=== PATIENT | female | born 1990 | race Caucasian/White ===

== ENCOUNTER 2017-02-26 18:07 | Emergency (ER) | payer SELFPAY ==
[~2017-02-26] VITALS: Ht 160 cm; Wt 87.0 kg
[~2017-02-26 18:07] MED LIST: BACTDS PO; CEPH-443 PO; IBUP-1542 PO
[2017-02-26 18:12] VITALS: Ht 160 cm; Wt 87.0 kg
[2017-02-26] MEDS ORDERED: HYDROCODONE/APAP (5/325) TAB PO ONE (19:00)
[2017-02-26] MEDS ORDERED: HYDR-906 PO (19:07)
[2017-02-26] MEDS ORDERED: SULF1TAB31 PO (19:07)
[2017-02-26] MEDS ORDERED: IBUP-1542 PO (19:07)
--- NOTE | 2017-02-26 19:55 | ERD ---
ER Documentation Chief Complaint Date/Time DATE: 02/26/17 TIME: 19:49 Chief Complaint abnormal growth genital area since tuesday; pain HPI This is a 26-year-old female who presents the emergency department today complaining of a growth and bump on her vagina for the past 4 days. Patient states that it is painful but it does feel smaller than it did yesterday. States that it had some bleeding from it however denies any other vaginal discharge. States she is sexually active with one partner. Denies any dysuria. States she is taking Motrin for pain. ROS All systems reviewed and are negative except as per history of present illness. Medications Home Meds Active Scripts Sulfamethoxazole/Trimethoprim* (Bactrim Ds* Tablet) 1 Each Tablet, 1 TAB PO BID for 7 Days, #14 TAB Prov:ANIBAL DUMONT-C 02/26/17 Ibuprofen* (Motrin*) 600 Mg Tab, 600 MG PO Q6, #30 TAB Prov:PROANIBAL MORRISON-C 02/26/17 Hydrocodone/Acetaminophen (Mcclusky 5-325 Tablet) 1 Each Tablet, 1 TAB PO Q6H Y for PAIN, #10 TAB Prov:ANIBAL DUMONT-C 02/26/17 Ibuprofen* (Motrin*) 600 Mg Tab, 600 MG PO Q6, #14 TAB Prov:RJEI BRUMFIELD MD 12/30/15 Sulfamethoxazole-Trimethoprim* (Bactrim* DS) 800-160 Mg Tab, 1 TAB PO BID for 7 Days, TAB Prov:REJI BRUMFIELD MD 12/30/15 Cephalexin* (Keflex*) 500 Mg Capsule, 500 MG PO QID for 7 Days, CAP Prov:REJI BRUMFIELD MD 12/30/15 Allergies Allergies: Coded Allergies: No Known Allergy (Unverified , 05/15/13) PMhx/Soc Medical and Surgical Hx: pt denies Medical Hx, pt denies Surgical Hx Hx Alcohol Use: No Hx Substance Use: No Hx Tobacco Use: No Smoking Status: Never smoker Physical Exam Vitals Vital Signs Date Time Temp Pulse Resp B/P Pulse Ox O2 Delivery O2 Flow Rate FiO2 02/26/17 18:12 99.4 109 18 136/76 99 Physical Exam Const: Obese, no acute distress Head: Atraumatic Eyes: Normal Conjunctiva ENT: Normal External Ears, Nose and Mouth. Neck: Full range of motion..~ No meningismus. Resp: Clear to auscultation bilaterally Cardio: Regular rate and rhythm, no murmurs Skin: No petechiae or rashes : Vaginal exam shows labia minora with evidence of small cyst that is draining. No vesicles. No other lesions. Neur: Awake and alert Psych: Normal Mood and Affect Results 24 hrs Current Medications Medications (Trade) Dose Ordered Sig/Elmer Route PRN Reason Start Time Stop Time Status Last Admin Dose Admin Acetaminophen/ Hydrocodone Bitart (Mcclusky (5/325)) 1 tab ONCE ONCE PO 02/26/17 19:00 02/26/17 19:01 DC 02/26/17 18:53 Procedures/MDM This is a 26-year-old female presents the emergency department today complaining of a growth on her vaginal area for the past 4 days. On physical exam patient has evidence of what appears to be a very small draining Bartholin' s cyst or [place]'s gland cyst that had discharge coming out of it. I did apply some pressure and discharge was removed. I do not feel the patient requires an I&D at this time given how small the area is. Low suspicion for sepsis, deep space infection. Patient is afebrile and otherwise well-appearing. She was slightly tachycardic likely secondary to pain. Low suspicion for genital herpes , condyloma.. Patient was given Mcclusky here in the emergency department. I gave the patient a prescription for Mcclusky, Motrin and Bactrim for home. She was instructed to follow-up with her JUNIOR ANALYST. At this time the patient is stable for discharge and outpatient management. Patient should follow up with their PCP in the next 1-2 days. She was given a list of resources. They may return to the emergency department sooner for any persistent or worsening of symptoms. Patient understood and agreed with the plan. Discussed the patient with Dr. Nunes and he is in agreement with the plan. Departure Diagnosis: Primary Impression: Vaginal cyst Condition: Fair Patient Instructions: Bartholin's Cyst (I And D) Referrals: COMM[facility]ITY CLIN[facility] YOU HAVE RECEIVED A MEDICAL SCREENING EXAM AND THE RESULTS INDICATE THAT YOU DO NOT HAVE A CONDITION THAT REQUIRES URGENT TREATMENT IN THE EMERGENCY DEPARTMENT. FURTHER EVALUATION AND TREATMENT OF YOUR CONDITION CAN WAIT UNTIL YOU ARE SEEN IN YOUR DOCTORS OFFICE WITHIN THE NEXT 1-2 DAYS. IT IS YOUR RESPONSIBILITY TO MAKE AN APPOINTMENT FOR [facility]. IF YOU HAVE A PRIMARY DOCTOR --you should call your primary doctor and schedule an appointment IF YOU DO NOT HAVE A PRIMARY DOCTOR YOU CAN CALL OUR PHYSICIAN REFERRAL HOTLINE AT IF YOU CAN NOT AFFORD TO SEE A PHYSICIAN YOU CAN CHOSE FROM THE FOLLOWING [facility] [phone] [facility] [address] [facility] [facility]. [facility] [address] [facility] [address] [facility] [facility] [address] [facility] [facility] [address] [place] JUNIOR ANALYST [place] [address] [facility] [facility] [address] [place] [address] OFFICE FAX PHYLLIS NULLNICA [address] [place], [place] [id number] [facility] [facility] [address] [place] [address] [address] [facility] [facility] [address] [facility], [facility] [address] [address] [address] [place] [address] [facility] [address] [place] [address] [phone] [facility] [address] - YUE WALKER [address], [facility] [address] [address] [place], [place] [address] [facility]. [address], [facility] [address] [address] [address] [place] [address] Additional Instructions: Call your primary care doctor TOMORROW for an appointment during the next 1-2 days.See the doctor sooner or return here if your condition worsens before your appointment time. Take Mcclusky for severe pain otherwise take Naprosyn or Tylenol or Motrin Take antibiotics as prescribed ANIBAL DUMONT PA-C Feb 26, 2017 19:55
== END 2017-02-26 19:17 | disposition home or self-care (01) ==
LOC: FTE 18:07
DX: N89.8 Other specified noninflammatory disorders of vagina (principal)
CPT/HCPCS: 99284

== ENCOUNTER 2017-09-23 16:07 | Emergency (ER) | END 2017-09-23 17:46 | disposition home or self-care (01) ==